=== PATIENT | female | born 1990 ===

== ENCOUNTER 2025-06-29 08:16 | Outpatient (AMB) | payer OTHER, SELFPAY ==
--- NOTE | 2025-06-29 08:20 | MHC.PC.OV ---
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 Note: patient here for new patient visit Control Valve Technician Required: No Is last menstrual period known: No (has IUD) Post menopausal: No Patient : No Allergies No Known Allergies Allergy (Verified 06/29/25 08:33) Medication List - Last Reconciled 06/29/25 by Laura Munoz CNP No Known Home Meds Tobacco use date assessed: 06/29/25 Dental Screening Dental Screen Date: 06/29/25 Did you have a dental visit in the last 12 months?: No Did you have a dental problem in the last 6 months where you did not have access to dental care?: No Was dental information given to patient?: Patient has dentist HPI HPI Comments History of Present Illness Details 34-year-old female presents to [facility]. She is not on prescription medications. She has an IUD. She reports controlled anxiety symptoms. Smoking cigarettes relieves her anxiety symptoms. She has not been on psychotropic medications for over a year. She denies h/o of psychotherapy. Prior PCP? - [facility], Dr. Hernandez Last office visit/CPE/labs - Over a year ago Acute issue(s) - Reports sore throat for the past 3 days, progressively worsen. Initial body aches that completely subsided. She has been taking mucinex with some relief. Past Medical History - Hypothyroidism, nicotine dependence, obesity, anxiety Surgical History - None Family History - Dad: Substance abuse - Mom: Substance abuse Social History - Smokes 7-10 cigarettes daily, 9 years smoking history. Does not vape. Does not drink alcohol, denies h/o AUD.. Denies recreational drug use - Has been making unhealthy dietary choices. Active but does not exercise. Difficulty falling asleep for over 2 years; denies snoring Health maintenance - Last eye exam was almost 10 years ago. Referred to Ophthalmology for routine eye exam - Last dental visit was a year ago; encouraged to schedule an appointment with his dentist for routine dental care - Last tetanus vaccine was almost 10 years ago; received Tdap vaccine today - She notes that she is up-to-date on the flu vaccine - [facility]. 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 1. Little interest or pleasure in doing things: not at all 2. Feeling down, depressed, or hopeless: not at all 3. Trouble falling or staying asleep, or sleeping too much: not at all 4. Feeling tired or having little energy: not at all 5. Poor appetite or overeating: not at all 6. Feeling bad about yourself - or that you are a failure or have let yourself or your family down: not at all 7. Trouble concentrating on things, such as reading the newspaper or watching television: not at all 8. Moving or speaking so slowly that other people could have noticed. Or the opposite - being so fidgety or restless that you have been moving around a lot more than usual: not at all 9. Thoughts that you would be better off or of hurting yourself in some way: not at all Total score: 0 Depression Screening Interpretation: Negative Depression Screening Done: Yes 48095 - PHQ-9 Billing: Yes Source: Developed by Drs. Earl Johnson, Morelia Carter, Cezar Rivera and colleagues, with an educational tory from [employer]. Thrive Questionnaire Date Thrive assessed: 06/29/25 I am a: Patient What is your living situation today?: I have a steady place to live Within the past 12 months, did the food you bought not last and you didn't have the money to get more?: Never true Within the past 12 months, did you worry whether your food would run out before you got money to buy more?: Never true Do you have trouble paying for medicines?: No Do you have trouble getting transportation to medical appointments?: No Do you have trouble paying your heating and electricity bill?: No Do you have trouble taking care of your child, family member or friend?: No Do you have trouble with day-to-day activities such as bathing, preparing meals, shopping, managing finances, etc.?: No Are you currently unemployed and looking for a job?: No Are you interested in more education?: No Please select the resources that you would like help with: Childcare Currently or been in a relationship where the following occur: No concerns reported THRIVE Score: 0 AUDIT C Alcohol Use Questionnaire (AUDIT-C) 1. How often do you have a drink containing alcohol?: Never 3. How often do you have six or more drinks on one occasion?: Never Total Score: 0 Score Reviewed/Action Taken: Yes DALE-7 AMB Questionnaire DALE-7 Date DALE - 7 assessed: 06/29/25 Feeling nervous, anxious, or on edge: 0 = Not at all Not being able to stop or control worryin = Not at all Worrying too much about different things: 0 = Not at all Trouble relaxin = Not at all Being so restless that it is hard to sit still: 0 = Not at all Becoming easily annoyed or irritable: 0 = Not at all Feeling afraid as if something awful might happen: 0 = Not at all Total DALE-7 score (0-4 normal; 5-9 mild; 10-14 moderate; 15-21 severe): 0 Source: Developed by Drs. Earl Johnson, Morelia Carter, Cezar Rivera and colleagues, with an educational tory from [employer]. DALE-7 Assessment Billing DALE-7 Assessment Tool: DALE-7 Assessment 73305 Review of Systems Const Details: Denies chills, Denies fatigue, Denies fever(s), Denies headache(s) and Denies weakness HEENT Reports sore throat, Denies change in vision, Denies dizziness, Denies headache(s), Denies hearing loss, Denies nasal congestion, Denies sinus pain, Denies sinus pressure Card Denies chest pain, Denies lightheadedness, Denies dyspnea and Denies other (palpitations) Resp Denies cough, Denies dyspnea and Denies wheezing GI Denies abdominal pain, Denies melena, Denies hematochezia, Denies change in bowel habits, Denies dyspepsia and Denies nausea Denies hematuria and Denies dysuria Musc Denies abnormal gait, Denies myalgias, Denies arthralgias, Denies numbness and Denies tingling Skin/Breast Denies rash, Denies unusual bruising and Denies wounds Neuro Denies abnormal gait, Denies dizziness, Denies headache(s), Denies memory loss, Denies numbness, Denies Sensory deficit (Neuro), Denies tingling and Denies weakness Psych Denies anxiety, Denies depression and Denies memory loss Endo Denies cold intolerance, Denies fatigue, Denies heat intolerance, Denies polydipsia and Denies polyuria Abdoulaye/Lymph Denies easy bleeding and Denies easy bruising Aller/Immun Denies wheezing Physical exam (Primary Care) Vital Signs: Last Vital Signs Temp 98.1 F 06/29/25 08:30 Pulse 89 06/29/25 08:30 Resp 16 06/29/25 08:30 BP 125/70 06/29/25 08:30 Pulse Ox 98 06/29/25 08:30 Oxygen Delivery Method Room Air 06/29/25 08:30 BMI result Body Mass Index 34.9 Tobacco/Smoking Status: Tobacco use Status Tobacco use date assessed 06/29/25 06/29/25 08:27 Patient Tobacco Use Status Current everyday Tobacco 06/29/25 08:27 e-Cigarette/Vaping Use Never Used 06/29/25 08:27 PHQ-9: PHQ-9 Score PHQ-9: Total score 0 06/29/25 09:04 Depression Screening Interpretation: Negative Thrive Assessment: Date of Thrive Assessment Date Thrive assessed 06/29/25 06/29/25 08:24 Currently or been in a relationship where the following occur: No concerns reported Const Other: General: no acute distress, well developed, alert and awake Nutritional Appearance: well nourished Orientation/consciousness: patient oriented x3 HENMT Head: Yes normocephalic and Yes atraumatic Ears: hearing grossly normal bilaterally and TM's normal bilaterally General nose exam: Normal external nose present and Normal nares present Mouth: Normal oral and palatal mucosa present and moist mucous membranes Teeth and gingiva: dentition normal Throat: Tonsils with yellow patches and slight swelling and erythema Eyes Pupils: Equal, round and reactive pupils present and Pupil accommodation reflex normal EOM: EOMs intact bilaterally Neck Neck: Yes normal visual inspection, Yes no lymphadenopathy and Yes trachea midline Thyroid: Thyroid normal Carotids: no bruits Lymphatic: no lymphadenopathy noted Chest Chest palpation & inspection: normal inspection of the chest Resp Effort & Inspection: normal respiratory effort Auscultation: clear to auscultation bilaterally Cardio Rate: regular rate Rhythm: regular rhythm Heart sounds: S1 normal heart sound present, S2 normal heart sound present, no gallops, no murmurs and no rubs Bruits: no abdominal aortic bruits and no carotid bruits GI Palpation (GI): No Abdominal aortic bruit present, Soft to palpation, nontender, No hepatosplenomegaly present and No Rebound tenderness present Auscultation: normal bowel sounds General: Yes no CVA tenderness Back/Spine/Pelvis Back: no CVA tenderness Cervical Spine: cervical ROM normal and No Cervical spine tenderness Thoracic/Lumbar Spine: thoraco-lumbar ROM normal, No pain with thoraco-lumbar ROM, No thoracic spinal tenderness and No lumbar spinal tenderness Skin General: warm and dry. Normal skin color. Normal skin turgor Lesions: no lesions Rashes: no rashes Trauma: no lacerations or abrasions Wounds: no wounds Nails: normal Neuro General: patient oriented x3, gait normal and CN's II-XI intact bilaterally Cranial nerves: Yes Equal, round and reactive pupils present Cognition (Neuro): normal cognition Gait exam (Neuro): Normal gait present Motor exam (neuro): 5/5 motor strength present throughout Sensory Exam: No Sensory deficit (Neuro) Deep tendon reflexes (DTR's): Right patellar reflex intensity grade: 2+ and Left patellar reflex intensity grade: 2+ Extrem General: Yes normal to inspection, No edema and No calf tenderness Psych Appearance: grossly normal Affect: normal affect Attitude: cooperative Thought process: Normal thought process present Immunizations Boostrix Tdap 2.5 Lf unit-8 mcg-5 Lf/0.5 mL intramuscular syringe Performing Provider: Laura Munoz CNP Performing Location: [facility] Administered by: Seun Nolasco RN on 06/29/25 09:04 Dose Route Admin Location Dispensed Lot Number Expiration Date [facility] Visual [employer] Program[employer] 0.5 mL IM Left Deltoid 0.5 mL [id number] 08/24/27 [id number] [employer] Total Dispensed Waste 0.5 mL 0 % VIS Given Date VIS Provided VIS Publication Date 06/29/25 Single Vaccine 21 Eligibility Eligibility Date Funding Source Not [facility] Eligible 06/29/25 Private Coding Level of Care Code New Pt Level 4 (23337) New Pt Prev Care 18-39yr(75763 Diagnoses Normal physical examination, routine Z00.00 Anxiety F41.9 Obesity (BMI 30-39.9) E66.9 Eye exam, routine Z01.00 Strep pharyngitis J02.0 Smoking 1/2 pack a day or less F17.210 Sleep disturbance G47.9 Laboratory tests ordered as part of a complete physical exam (CPE) Z00.00 Additional Codes DALE-7 Assessment Billing - DALE-7 Assessment Tool: DALE-7 Assessment 16250 ([id number]) PHQ-9 - 62220 - PHQ-9 Billing: Yes ([id number]) Assessment & Plan Assessment & Plan (1) Normal physical examination, routine: Code(s): Z00.00 - Encounter for general adult medical examination without abnormal findings Category: Medical Plan: No significant functional limitation noted. Healthy diet and routine exercise encouraged. Perform lab work and follow-up for a telehealth visit for labs reviewed in 2-4 weeks. Return sooner with symptoms or concerns. Verbalized understanding and agreed with the plan. (2) Anxiety: Code(s): F41.9 - Anxiety disorder, unspecified Category: Medical Plan: Reports controlled anxiety symptoms. Smoking cigarettes relieves her anxiety symptoms. She has not been on psychotropic medications for over a year. She denies h/o of psychotherapy. Smoking cessation encouraged. Encouraged to apply nicotine patch as prescribed. Hydroxyzine 25 mg 3 times daily as needed ordered for anxiety; advised to take as prescribed. Instructed on the risks, benefits, and potential adverse reactions of the medication. Follow-up with worsening or new symptoms. Verbalized understanding and agreed with the plan. (3) Obesity (BMI 30-39.9): Code(s): E66.9 - Obesity, unspecified Category: Medical Plan: She currently weighs 191 lb, BMI is 34.9. She has been making healthy dietary choices. Referred to [facility] systems analyst developer/dietitian as requested. Follow-up as needed. Verbalized understanding and agreed with the plan. (4) Eye exam, routine: Code(s): Z01.00 - Encounter for examination of eyes and vision without abnormal findings Category: Medical Plan: Last eye exam was almost 10 years ago. Referred to Ophthalmology for routine eye exam. (5) Strep pharyngitis: Code(s): J02.0 - Streptococcal pharyngitis Category: Medical Plan: Reports sore throat for the past 3 days, progressively worsen. Initial body aches that completely subsided. She has been taking mucinex with some relief. Tonsils with yellow patches and slight swelling and erythema. Amoxicillin 500 mg twice daily times 10 days ordered; advised to take as prescribed. Instructed on the risks, benefits, and potential adverse reactions of the medication. May take Tylenol or ibuprofen as needed for pain or discomfort. Adequate hydration encouraged. Advised to avoid kissing or sharing utensils to limit spread. Follow-up with worsening or new symptoms. Verbalized understanding and agreed with the plan. (6) Smoking 1/2 pack a day or less: Code(s): F17.210 - Nicotine dependence, cigarettes, uncomplicated Category: Social Hx Plan: Smokes 7-10 cigarettes daily, 9 years smoking history. Smoking cigarettes relieves her anxiety symptoms; however, she is motivated to quit. Instructed on the health risks and complications of cigarette smoking and encouraged to quit. Nicotine patch as ordered. Follow-up as needed. Verbalized understanding and agreed with the plan. (7) Sleep disturbance: Code(s): G47.9 - Sleep disorder, unspecified Category: Medical Plan: Reports difficulty falling asleep for over 2 years; denies snoring. Instructed on sleep hygiene. Routine exercise encouraged. Follow-up as needed. Verbalized understanding and agreed with the plan. (8) Laboratory tests ordered as part of a complete physical exam (CPE): Code(s): Z00.00 - Encounter for general adult medical examination without abnormal findings Category: Medical Plan: Fasting labs ordered as part of a complete physical exam. Advised to fast for at least 10 hours before getting labs drawn. May drink water Verbalized understanding and agreed with treatment plan. Orders: Orders TSH reflex Free T4 Today Z00.00 - Encounter for general adult medical examination without abnormal findings Complete Blood Count Auto Diff Today Z00.00 - Encounter for general adult medical examination without abnormal findings Comprehensive [place]. Panel Fast Today Z00.00 - Encounter for general adult medical examination without abnormal findings Lipid Panel Today Z00.00 - Encounter for general adult medical examination without abnormal findings Microalbumin, Random (w Creat) Today Z00.00 - Encounter for general adult medical examination without abnormal findings UA CC w/rflx Micro + Cult Today Z00.00 - Encounter for general adult medical examination without abnormal findings Vitamin D 25-OH Total Today Z00.00 - Encounter for general adult medical examination without abnormal findings TDaP Immunization Today Z23 - Encounter for immunization Referrals Ophthalmology Referral Z01.00 - Encounter for examination of eyes and vision without abnormal findings Nutrition/Dietitian Referral E66.9 - Obesity, unspecified Medications: New amoxicillin 500 mg PO BID 20 tabs 0RF 10 days hydroxyzine HCl 25 mg PO TID PRN 90 tabs 3RF anxiety nicotine Apply 14 mg patch daily x6 weeks, then apply 7 mg patch daily x2 weeks 1 patch transdermal Q24H 56 ea 0RF
--- OUTSIDE RECORDS SUMMARY | 2025-06-29 08:25 | XMS_ITS | Clinical Summary ---
Author Organization [facility] Address [address] [place] [address] Phone Care Team Providers Care Edge Inker Uppers Name Role Phone Nedra Miller MD Primary Care Provider [phone] [phone] Allergies No known active allergies Medications No known medications Encounters Date Type Department Care Team Description 04/22/2025 12:03 PM EDT - 04/22/2025 5:[address] [facility] [address] [place] [address] Steve Mayo MD Lower abdominal pain (Primary Dx) Discharge Disposition: Home or Self Care from Last 3 Months Surgical History Surgery Date Site/Laterality Comments OTHER SURGICAL HISTORY PROCEDURE: DENIES PREVIOUS SURGERY Family History Relation Name Status Comments Brother Alive Father Alive Mother Alive Sister Alive Social History Tobacco Use Types Packs/Day Years Used Date Smoking Tobacco: Never Alcohol Use Standard Drinks/Week Comments No 0 (1 standard drink = 0.6 oz pur e alcohol) Comments Unknown Sex and Gender Information Value Date Recorded Sex Assigned at Not on file Legal Sex Female 5:42 AM EST Gender Identity Not on file Sexual Orientation Not on file Obstetrics History Last Filed Vital Signs Vital Sign Reading Time Taken Comments Blood Pressure 102/64 04/22/2025 3:59 PM EDT Pulse 61 04/22/2025 3:59 PM EDT Temperature 36.6 C (97.9 F) 04/22/2025 3:59 PM EDT Respiratory Rate 16 04/22/2025 3:59 PM EDT Oxygen Saturation 100% 04/22/2025 3:59 PM EDT Inhaled Oxygen Concentration - - Weight 88.5 kg (195 lb) 04/22/2025 12:00 PM EDT Height 157.5 cm (5' 2 ) 04/22/2025 12:00 PM EDT Body Mass Index 35.67 04/22/2025 12:00 PM EDT Plan of Treatment Health Maintenance Due Date Last Done Comments Hepatitis B Vaccines (1 of 3 - 19+ 3-dose series) 2011 Cervical Cancer Screening: P ap Smear 2013 DTaP,Tdap,and Td Vaccines (2 - Td or Tdap) 06/02/2022 06/02/2012 HIV Screening 10/07/2022 Hepatitis C Screening 10/07/2022 Social Influencers of Health Screening 10/07/2022 COVID-19 Vaccine (2023-2 5 season) 2024 Depression Screening 11/04/2024 Influenza Vaccine (#1) 2025 11/14/2012 HIB Vaccines Aged Out No longer eligi ble based on patient's age to complete this topic HPV Vaccines Aged Out No longer eligi ble based on patient's age to complete this topic Hepatitis A Vaccines Aged Out No long er eligible based on patient's age to complete this topic IPV Vaccines Aged Out No longer eligi ble based on patient's age to complete this topic MMR Vaccines Aged Out No longer eligi ble based on patient's age to complete this topic Meningococcal ACWY Vaccine Aged Out N o longer eligible based on patient's age to complete this topic Meningococcal B Vaccine Aged Out No l onger eligible based on patient's age to complete this topic Pneumococcal Vaccine: Pediat rics (0 to 5 Years) and At-Risk Patients (6 to 49 Years) Aged Out No longer eligi ble based on patient's age to complete this topic RSV Immunization Patients Un russell 20 months Aged Out No longer eligible b ased on patient's age to complete this topic Varicella Vaccines Aged Out No longer eligible based on patient's age to complete this topic Procedures Procedure Name Priority Date/Time Associated Diagnosis Comments US PELVIS NON OB COMPLETE W TRANSVAGINAL STAT 04/22/2025 2:37 PM EDT POC , URINE DIAGNOSTIC STAT 04/22/2025 1:29 PM EDT URINALYSIS WITH REFLEX MICROSCOPIC AND CULTURE STAT 04/22/2025 1:24 PM EDT CULTURE URINE STAT 04/22/2025 1:24 PM EDT HCG, SERUM, QUALITATIVE STAT Add-on 04/22/2025 12:13 PM EDT CBC WITH AUTO DIFFERENTIAL STAT 04/22/2025 12:13 PM EDT COMPREHENSIVE METABOLIC PANEL STAT 04/22/2025 12:13 PM EDT CBC AND DIFFERENTIAL STAT 04/22/2025 12:13 PM EDT from Last 3 Months Results * US Pelvis Non OB Complete w Transvaginal (04/22/2025 2:37 PM EDT) Anatomical Region Laterality Modality Body, Pelvis Ultrasound Impressions 04/22/2025 3:[address]. Negative pelvic ultrasound otherwise. 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 Transabdominal and transvaginal imaging of the pelvis was performed. COMPARISON: None. FINDINGS: UTERUS: Measures 8.5 x 4 x 5.5 cm. Anteverted Normal echotexture. No focal lesions. IUD in place approximately 0.7 cm from tip to the end of the endometrium in the fundus. ENDOMETRIUM: Thickness = 5 mm. Unremarkable echotexture. No focal abnormality. RIGHT OVARY: Measures 3.6 x 1.7 x 2.2 cm. follicles identified. No focal adnexal abnormality. Normal color-flow. LEFT OVARY: Measures 2.4 x 1.9 x 1.9 cm. follicles identified. No focal adnexal abnormality. Normal color-flow. Steve Fany Mayo MD IM US PROCEDURES Edited Result - Final * POC , urine manually resulted (04/22/2025 1:29 PM EDT) Pathologist [facility] HCG, Ur POC Negative Negative POC hCG Int QC Pass? Yes Yes EXPIRATION DATE POC 20261222 LOT NUMBER POC [id number] Urine Urine specimen obtained by clean catch procedure / Unknown 04/22/2025 1:29 PM EDT Tseve B Gael YEUNG POINT OF CARE TEST ENTER/EDIT O RDERABLES Final Result * (ABNORMAL) Urinalysis with reflex microscopic and culture (04/22/2025 1:24 PM EDT) [facility] Specific [place] Urine 1.013 1.003 - 1.030 LAB URINALYSIS - AUTOMATED METHOD 04/22/2025 2:[address] [facility] pH, Urine 7.5 5.0 - 8.0 pH LAB URINALYSIS - AUTOMATED METHOD 04/22/2025 2:[address] [facility] Leukocytes, Urine Moderate(A) Negative LAB URINALYSIS - AUTOMATED METHOD 04/22/2025 2:[address] [facility] Nitrite, Urine Negative Negative LAB URINALYSIS - AUTOMATED METHOD 04/22/2025 2:[address] [facility] Protein, Urine Negative <=Trace mg/dL LAB URINALYSIS - AUTOMATED METHOD 04/22/2025 2:[address] [facility] Glucose, Urine Negative Negative mg/dL LAB URINALYSIS - AUTOMATED METHOD 04/22/2025 2:[address] [facility] Ketones, Urine Negative Negative mg/dL LAB URINALYSIS - AUTOMATED METHOD 04/22/2025 2:03 PM EDT [facility] Urobilinogen , Urine 0.2 0.2 - 1.0 mg/dL LAB URINALYSIS - AUTOMATED METHOD 04/22/2025 2:03 PM EDT [facility] Bilirubin, Urine Negative Negative LAB URINALYSIS - AUTOMATED METHOD 04/22/2025 2:03 PM EDT [facility] Blood, Urine Trace(A) Negative LAB URINALYSIS - AUTOMATED METHOD 04/22/2025 2:03 PM EDT [facility] RBC, Urine 8.3(H) 0 - 4 /HPF LAB URINALYSIS - AUTOMATED METHOD [facility] WBC, Urine 8.4(H) 0 - 4 /HPF LAB URINALYSIS - AUTOMATED METHOD 04/22/2025 2:[address] [facility] Squamous Epithelial, Urine >100(H) 0 - 60 /LPF LAB URINALYSIS - AUTOMATED METHOD 04/22/2025 2:[address] [facility] Bacteria, Urine Few(A) Negative /HPF LAB URINALYSIS - AUTOMATED METHOD 04/22/2025 2:[address] [facility] Hyaline Casts, Urine 3.2(H) 0 - 3 /LPF LAB URINALYSIS - AUTOMATED METHOD 04/22/2025 2:[address] [facility] Urine Urine specimen obtained by clean catch procedure / Unknown Non-blood Collection / Unknown 04/22/2025 1:24 PM EDT 04/22/2025 1:52 PM EDT us Steve B Gael YEUNG LAB URINE ORDERABLES Final Resu lt [facility] [address] [place] [address], [place] [phone] * Culture urine (04/22/2025 1:24 PM EDT) Pathologist [facility] Culture, Urine 10,000-49,000 CFU/mL Mixed urogenital emerson, no uropathogens present. Suggest repeat specimen if clinically indicated. 04/23/2025 8:16 AM EDT [facility] Urine Urine specimen obtained by clean catch procedure / Unknown Non-blood Collection / Unknown 04/22/2025 1:24 PM EDT 04/22/2025 2:03 PM EDT Steve B Gael YEUNG LAB MICROBIOLOGY - GENERAL DENISE ANGEL Final Result [facility] [address] [place] [address], [place] [phone] * (ABNORMAL) CBC auto differential (04/22/2025 12:13 PM EDT) [facility] WBC 10.2 4.8 - 10.8 K/mcL LAB HEMETOLOGY METHOD 04/22/2025 1:03 PM EDT [facility] RBC 4.80 3.80 - 4.80 M/mcL LAB HEMETOLOGY METHOD 04/22/2025 1:03 PM EDT [facility] Hemoglobin 13.7 11.5 - 16.0 g/dL LAB HEMETOLOGY METHOD 04/22/2025 1:03 PM EDT [facility] Hematocrit 42.8 35.0 - 47.0 % LAB HEMETOLOGY METHOD 04/22/2025 1:03 PM EDT [facility] MCV 89.4 79.0 - 98.0 FL LAB HEMETOLOGY METHOD 04/22/2025 1:03 PM EDT [facility] MCH 28.6 27.0 - 32.0 pcg LAB HEMETOLOGY METHOD [facility]25 [facility] MCHC 32.0 32.0 - 37.0 g/dL LAB HEMETOLOGY METHOD 04/22/2025 1:03 [facility] RDW 13.4 11.0 - 15.0 % LAB HEMETOLOGY METHOD 04/22/2025 1:[address] [facility] Platelets 352 130 - 400 K/mcL LAB HEMETOLOGY METHOD 04/22/2025 1:[address] [facility] MPV 10.3 7.0 - 11.0 FL LAB HEMETOLOGY METHOD 04/22/2025 1:[address] [facility] NRBC 0.0 <1.0 % LAB HEMETOLOGY METHOD 04/22/2025 1:[address] [facility] NRBC Absolute 0.00 <0.10 K/mcL LAB HEMETOLOGY METHOD 04/22/2025 1:[address] [facility] Neutrophils Relative 66.5 % LAB HEMETOLOGY METHOD 04/22/2025 1:[address] [facility] Lymphocytes Relative 22.7 % LAB HEMETOLOGY METHOD 04/22/2025 1:[address] [facility] Monocytes Relative 7.2 % LAB HEMETOLOGY METHOD 04/22/2025 1:[address] [facility] Eosinophils Relative 2.2 % LAB HEMETOLOGY METHOD 04/22/2025 1:[address] [facility] Basophils Relative 1.0 % LAB HEMETOLOGY METHOD 04/22/2025 1:[address] [facility] Immature Granulocytes Relative 0.4 % LAB HEMETOLOGY METHOD 04/22/2025 1:[address] [facility] Neutrophils Absolute 6.77 1.50 - 7.00 K/mcL LAB HEMETOLOGY METHOD 04/22/2025 1:[address] [facility] Lymphocytes Absolute 2.31 1.00 - 5.00 K/mcL LAB HEMETOLOGY METHOD 04/22/2025 1:03 PM EDT [facility] Monocytes Absolute 0.73 0.20 - 1.00 K/mcL LAB HEMETOLOGY METHOD 04/22/2025 1:03 PM EDT [facility] Eosinophils Absolute 0.22 0.00 - 0.50 K/[facility] LAB HEMETOLOGY METHOD 04/22/2025 1:03 PM EDT [facility] Basophils Absolute 0.10 0.00 - 0.20 K/[facility] LAB HEMETOLOGY METHOD 04/22/2025 1:03 PM EDT [facility] Immature Granulocytes Absolute 0.04(H) 0.00 - 0.03 K/[facility] LAB HEMETOLOGY METHOD 04/22/2025 1:03 PM EDT [facility] Blood Venous blood specimen / Unknown Venipuncture / Unknown 04/22/2025 12:13 PM EDT 04/22/2025 12:53 PM EDT Steve Mayo MD LAB BLOOD ORDERABLES Final Resu lt [facility] [address] [place] [address], [place] [phone] * hCG, serum, qualitative (04/22/2025 12:13 PM EDT) hCG Qual Negative Negative 04/22/2025 2:11 PM EDT [facility] Blood Venous blood specimen / Unknown Venipuncture / Unknown 04/22/2025 12:13 PM EDT 04/22/2025 12:54 PM EDT us Steve Mayo MD LAB BLOOD ORDERABLES Final Resu lt [facility] [address] [place] [address], [place] [phone] * Comprehensive metabolic panel (04/22/2025 12:13 PM EDT) Sodium 142 133 - 145 mmol/L LAB CHEMISTRY METHOD 04/22/2025 1:[address] [facility] Potassium 4.7 3.5 - 5.5 mmol/L LAB CHEMISTRY METHOD 04/22/2025 1:[address] [facility] Chloride 110 96 - 110 mmol/L LAB CHEMISTRY METHOD 04/22/2025 1:[address] [facility] CO2 26 21 - 32 mmol/L LAB CHEMISTRY METHOD 04/22/2025 1:[address] [facility] Anion Gap 6 3 - 11 LAB CHEMISTRY METHOD 04/22/2025 1:[address] [facility] Glucose 87 70 - 100 mg/dL LAB CHEMISTRY METHOD 04/22/2025 1:[address] [facility] BUN 7 5 - 25 mg/dL LAB CHEMISTRY METHOD 04/22/2025 1:[address] [facility] Creatinine 0.87 0.50 - 1.10 mg/dL LAB CHEMISTRY METHOD 04/22/2025 1:[address] [facility] eGFR 91 >=60 mL/min/1. 73m2 LAB CHEMISTRY METHOD 04/22/2025 1:[address] [facility] Comment:Calculation based on the Chronic Kidney Disease Epidemiology Collaboration (CKD-EPI) equation refit without adjustment for race. BUN/Creatinine Ratio 8.0 LAB CHEMISTRY METHOD 04/22/2025 1:[address] [facility] Calcium 8.7 8.5 - 10.5 mg/dL LAB CHEMISTRY METHOD 04/22/2025 1:[address] [facility] AST (SGOT) 19 10 - 42 unit/L LAB CHEMISTRY METHOD 04/22/2025 1:[address] [facility] ALT (SGPT) 21 10 - 60 unit/L LAB CHEMISTRY METHOD 04/22/2025 1:29 PM EDT [facility] Alkaline Phosphatase 68 42 - 121 unit/L LAB CHEMISTRY METHOD 04/22/2025 1:29 PM EDT [facility] Total Protein 6.6 6.0 - 8.0 g/dL LAB CHEMISTRY METHOD 04/22/2025 1:29 PM EDT [facility] Albumin 3.5 3.2 - 5.0 g/dL LAB CHEMISTRY METHOD 04/22/2025 1:29 PM EDT [facility] Total Bilirubin 0.4 0.0 - 1.4 mg/dL LAB CHEMISTRY METHOD 04/22/2025 1:29 PM EDT [facility] Blood Venous blood specimen / Unknown Venipuncture / Unknown 04/22/2025 12:13 PM EDT 04/22/2025 12:54 PM EDT [facility] Fany Mayo MD LAB BLOOD ORDERABLES Final Resu lt [facility] [address] [place] [address], from Last 3 Months Insurance [facility] Care Teams Edge Inker Uppers Relationship Specialty Start Date End Date Nedra Miller MD [address] [place] [address] PCP - General Internal Medicine 08/02/21
[2025-06-29 08:30] VITALS: BP 125/70; PULSE 89; RESP 16; TEMP 36.7; O2SAT 98; BMI 34.9
== END 2025-06-29 08:55 | disposition home or self-care (01) ==
LOC: HO.HMCFM 08:16
PROVIDERS: PCP Internal Medicine; Visit Provider Nurse Practitioner Family
DX: Z00.00 Encounter for general adult medical examination without abnormal findings (principal); F41.9 Anxiety disorder, unspecified; E66.9 Obesity, unspecified; Z68.34 Body mass index [BMI] 34.0-34.9, adult; J02.0 Streptococcal pharyngitis; F17.210 Nicotine dependence, cigarettes, uncomplicated; G47.9 Sleep disorder, unspecified; Z23 Encounter for immunization

== ENCOUNTER → 2025-06-29 08:16 | Outpatient (BNVA) | payer OTHER, SELFPAY | PROVIDERS: PCP Internal Medicine; Visit Provider Nurse Practitioner Family | DX: Z00.00 Encounter for general adult medical examination without abnormal findings (principal); F41.9 Anxiety disorder, unspecified; E66.9 Obesity, unspecified; J02.0 Streptococcal pharyngitis; F17.210 Nicotine dependence, cigarettes, uncomplicated; Z23 Encounter for immunization | CPT/HCPCS: 90471; 90715; 96127; 99202; 99385 ==

== ENCOUNTER 2025-07-12 09:08 | Outpatient (REF) | payer OTHER, SELFPAY ==
--- OUTSIDE RECORDS SUMMARY | 2025-07-12 10:17 | XMS_ITS | Clinical Summary ---
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 Nedra Miller MD Primary Care Provider +1 [phone] Allergies No known active allergies Medications No known medications Encounters Date Type Department Care Team Description 04/22/2025 12:03 PM EDT - 04/22/2025 5:08 PM EDT Emergency [facility] Emergency [address] [place] [address] Steve Mayo MD Lower abdominal [...] 10/07/2022 Social Influencers of Health Screening 10/07/2022 Depression Screening 11/04/2024 COVID-19 Vaccine ( - 2023-2 5 season) 2025 Influenza Vaccine (#1) 2025 11/14/2012 HIB Vaccines [...] Signed Date: 04/22/2025 15:19 ET Workstation ID: [id number] Transcribed By: Self Edit Transcribed Date: 04/22/2025 15:17 ET Narrative 04/22/2025 3:19 PM EDT ULTRASOUND PELVIS INDICATIONS: 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 Yes Yes EXPIRATION DATE POC 20261222 LOT NUMBER POC [id number] Urine Urine specimen obtained by clean catch procedure / Unknown 04/22/2025 1:29 PM EDT Steve B Gael YEUNG POINT OF CARE TEST ENTER/EDIT O RDERABLES Final Result * (ABNORMAL) Urinalysis with reflex microscopic and culture (04/22/2025 1:24 PM EDT) [facility] [place] Urine 1.013 1.003 - 1.030 LAB URINALYSIS - AUTOMATED METHOD 04/22/2025 2:03 PM [facility] pH, Urine 7.5 5.0 - 8.0 pH LAB URINALYSIS - AUTOMATED METHOD 04/22/2025 2:03 PM [facility] Leukocytes, Urine Moderate(A) Negative LAB URINALYSIS - AUTOMATED METHOD 04/22/2025 2:03 PM [facility] Nitrite, Urine Negative Negative LAB URINALYSIS - AUTOMATED METHOD 04/22/2025 2:03 PM [facility] Protein, Urine Negative <=Trace mg/dL LAB URINALYSIS - AUTOMATED METHOD 04/22/2025 2:03 PM [facility] Glucose, Urine Negative Negative mg/dL LAB URINALYSIS - AUTOMATED METHOD 04/22/2025 2:03 PM [facility] Ketones, Urine Negative Negative mg/dL LAB URINALYSIS - AUTOMATED METHOD 04/22/2025 2:03 PM EDT [facility] Urobilinogen , Urine 0.2 0.2 - 1.0 mg/dL LAB URINALYSIS - AUTOMATED METHOD 04/22/2025 2:03 PM EDT [facility] Bilirubin, Urine Negative Negative LAB URINALYSIS - AUTOMATED METHOD 04/22/2025 2:03 PM EDT [facility] Blood, Urine Trace(A) Negative LAB URINALYSIS - AUTOMATED METHOD 04/22/2025 2:03 PM EDT [facility] RBC, Urine 8.3(H) 0 - 4 /HPF LAB URINALYSIS - AUTOMATED METHOD [facility]25 [facility] WBC, Urine 8.4(H) 0 - 4 /HPF LAB URINALYSIS - AUTOMATED METHOD 04/22/2025 2:03 PM [facility] Squamous Epithelial, Urine >100(H) 0 - 60 /LPF LAB URINALYSIS - AUTOMATED METHOD 04/22/2025 2:03 PM [facility] Bacteria, Urine Few(A) Negative /HPF LAB URINALYSIS - AUTOMATED METHOD 04/22/2025 2:03 PM [facility] Hyaline Casts, Urine 3.2(H) 0 - 3 /LPF LAB URINALYSIS - AUTOMATED METHOD 04/22/2025 2:03 PM [facility] Urine Urine specimen obtained by clean catch procedure / Unknown Non-blood Collection / Unknown 04/22/2025 1:24 PM EDT 04/22/2025 1:52 PM EDT us Steve B Gael YEUNG LAB URINE ORDERABLES Final Resu lt [facility] [address] [place] [address], [place] [phone] * Culture urine (04/22/2025 1:24 PM EDT) Pathologist [facility] [place] Culture, Urine 10,000-49,000 CFU/mL Mixed urogenital emerson, no uropathogens present. Suggest repeat specimen if clinically indicated. 04/23/2025 8:16 AM EDT [facility] Urine Urine specimen obtained by clean catch procedure / Unknown Non-blood Collection / Unknown 04/22/2025 1:24 PM EDT 04/22/2025 2:03 PM EDT Steve B Gael YEUNG LAB MICROBIOLOGY - GENERAL DENISE ANGEL Final Result [facility] [address] [place] [address], [place] [phone] * (ABNORMAL) CBC auto differential (04/22/2025 12:13 PM EDT) [facility] WBC 10.2 4.8 - 10.8 K/mcL LAB HEMETOLOGY METHOD 04/22/2025 1:03 PM EDT [facility] RBC 4.80 3.80 - 4.80 M/mcL LAB HEMETOLOGY METHOD 04/22/2025 1:03 PM EDT [facility] Hemoglobin 13.7 11.5 - 16.0 g/dL LAB HEMETOLOGY METHOD 04/22/2025 1:03 PM EDT [facility] Hematocrit 42.8 35.0 - 47.0 % LAB HEMETOLOGY METHOD 04/22/2025 1:03 PM EDT [facility] MCV 89.4 79.0 - 98.0 FL LAB HEMETOLOGY METHOD 04/22/2025 1:03 PM EDT [facility] MCH 28.6 27.0 - 32.0 pcg LAB HEMETOLOGY METHOD [facility]2025 [facility] MCHC 32.0 32.0 - 37.0 g/dL LAB HEMETOLOGY METHOD 04/22[facility]2025 1:[facility] RDW 13.4 11.0 - 15.0 % LAB HEMETOLOGY METHOD 04/22/2025 1:03 PM [facility] Platelets 352 130 - 400 K/mcL LAB HEMETOLOGY METHOD 04/22/2025 1:03 PM [facility] MPV 10.3 7.0 - 11.0 FL LAB HEMETOLOGY METHOD 04/22/2025 1:03 PM [facility] NRBC 0.0 <1.0 % LAB HEMETOLOGY METHOD 04/22/2025 1:03 PM [facility] NRBC Absolute 0.00 <0.10 K/mcL LAB HEMETOLOGY METHOD 04/22/2025 1:03 PM [facility] Neutrophils Relative 66.5 % LAB HEMETOLOGY METHOD 04/22/2025 1:03 PM [facility] Lymphocytes Relative 22.7 % LAB HEMETOLOGY METHOD 04/22/2025 1:03 PM [facility] Monocytes Relative 7.2 % LAB HEMETOLOGY METHOD 04/22/2025 1:03 PM [facility] Eosinophils Relative 2.2 % LAB HEMETOLOGY METHOD 04/22/2025 1:03 PM [facility] Basophils Relative 1.0 % LAB HEMETOLOGY METHOD 04/22/2025 1:03 PM [facility] Immature Granulocytes Relative 0.4 % LAB HEMETOLOGY METHOD 04/22/2025 1:03 PM [facility] Neutrophils Absolute 6.77 1.50 - 7.00 K/mcL LAB HEMETOLOGY METHOD 04/22/2025 1:03 PM [facility] Lymphocytes Absolute 2.31 1.00 - 5.00 K/mcL LAB HEMETOLOGY METHOD 04/22/2025 1:03 PM EDT [facility] Monocytes Absolute 0.73 0.20 - 1.00 K/mcL LAB HEMETOLOGY METHOD 04/22/2025 1:03 PM EDT [facility] Eosinophils Absolute 0.22 0.00 - 0.50 K/[facility] LAB HEMETOLOGY METHOD 04/22/2025 1:03 PM EDT [facility] Basophils Absolute 0.10 0.00 - 0.20 K/[facility] LAB HEMETOLOGY METHOD 04/22/2025 1:03 PM EDT [facility] Immature Granulocytes Absolute 0.04(H) 0.00 - 0.03 K/[facility] LAB HEMETOLOGY METHOD 04/22/2025 1:03 PM EDT [facility] Blood Venous blood specimen / Unknown Venipuncture / Unknown 04/22/2025 12:13 PM EDT 04/22/2025 12:53 PM EDT Steve Mayo MD LAB BLOOD ORDERABLES Final Resu lt [facility] [address] [place] [address], [place] [phone] * hCG, serum, qualitative (04/22/2025 12:13 PM EDT) hCG Qual Negative Negative 04/22/2025 2:11 PM EDT [facility] Blood Venous blood specimen / Unknown Venipuncture / Unknown 04/22/2025 12:13 PM EDT 04/22/2025 12:54 PM EDT us Steve Mayo MD LAB BLOOD ORDERABLES Final Resu lt [facility] [address] [place] [address], [place] [phone] * Comprehensive metabolic panel (04/22/2025 12:13 PM EDT) Sodium 142 133 - 145 mmol/L LAB CHEMISTRY METHOD 04/22/2025 1:29 PM [facility] Potassium 4.7 3.5 - 5.5 mmol/L LAB CHEMISTRY METHOD 04/22/2025 1:29 PM [facility] Chloride 110 96 - 110 mmol/L LAB CHEMISTRY METHOD 04/22/2025 1:29 PM [facility] CO2 26 21 - 32 mmol/L LAB CHEMISTRY METHOD 04/22/2025 1:29 PM [facility] Anion Gap 6 3 - 11 LAB CHEMISTRY METHOD 04/22/2025 1:29 PM [facility] Glucose 87 70 - 100 mg/dL LAB CHEMISTRY METHOD 04/22/2025 1:29 PM [facility] BUN 7 5 - 25 mg/dL LAB CHEMISTRY METHOD 04/22/2025 1:29 PM [facility] Creatinine 0.87 0.50 - 1.10 mg/dL LAB CHEMISTRY METHOD 04/22/2025 1:29 PM [facility] eGFR 91 >=60 mL/min/1. 73m2 LAB CHEMISTRY METHOD 04/22/2025 1:29 PM [facility] Comment:Calculation based on the Chronic Kidney Disease Epidemiology Collaboration (CKD-EPI) equation refit without adjustment for race. BUN/Creatinine Ratio 8.0 LAB CHEMISTRY METHOD 04/22/2025 1:29 PM [facility] Calcium 8.7 8.5 - 10.5 mg/dL LAB CHEMISTRY METHOD 04/22/2025 1:29 PM [facility] AST (SGOT) 19 10 - 42 unit/L LAB CHEMISTRY METHOD 04/22/2025 1:29 PM [facility] ALT (SGPT) 21 10 - 60 unit/L LAB CHEMISTRY METHOD 04/22/2025 1:29 PM EDT [facility] Alkaline Phosphatase 68 42 - 121 unit/L LAB CHEMISTRY METHOD 04/22/2025 1:29 PM EDT [facility] Total Protein 6.6 6.0 - 8.0 g/dL LAB CHEMISTRY METHOD 04/22/2025 1:29 PM EDT [facility] Albumin 3.5 3.2 - 5.0 g/dL LAB CHEMISTRY METHOD 04/22/2025 1:29 PM EDT [facility] Total Bilirubin 0.4 0.0 - 1.4 mg/dL LAB CHEMISTRY METHOD 04/22/2025 1:29 PM EDT [facility] Blood Venous blood specimen / Unknown Venipuncture / Unknown 04/22/2025 12:13 PM EDT 04/22/2025 12:54 PM EDT [facility] Fany Mayo MD LAB BLOOD ORDERABLES Final Resu lt [facility] [address] [place] [address], from Last 3 Months Insurance [facility] [employer] Care Teams 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
[2025-07-12 15:10] LABS: Appearance Urine Clear; Glucose Urine UA Negative (Negative); PH 6.0 (5.0-9.0); Specific Gravity - Urine 1.025 (1.005-1.025); UMIC TRIGGER UACC YES
[2025-07-12 15:17] LABS: MANUAL DIFF FLAG NO
[2025-07-12 15:24] LABS: Hematocrit 42.7 % (37.0-47.0); Hemoglobin 13.8 g/dl (12.0-16.0); Imm Gran Abs Auto 0.09 X10*3/uL (0.00-0.03); Imm Gran Pct Auto 0.7 % (0.0-0.4); Lymphocytes Absolute Auto 2.8 X10*3/uL (1.2-4.9); Mean Corpuscular HGB Conc 32.3 g/dl (31.0-35.0); Mean Corpuscular Hemoglobin 28.5 pg (27.0-33.0); Mean Corpuscular Volume 88.0 fL (80.0-98.0); NRBC Abs Auto 0.000 X10*3/uL (0.0-0.012); NRBC Pct Auto 0.0 /100WBC (0.0-0.2); Platelet Count 388 X10*3/uL (160-400); Red Blood Count 4.85 X10*6/uL (4.20-5.50); White Blood Count 13.5 X10*3/uL (4.8-10.8)
[2025-07-12 15:45] LABS: Alanine Aminotransferase 31 U/L (0-31); Albumin Level 4.3 g/dL (3.5-5.0); Alkaline Phosphatase 67 U/L (39-117); Anion Gap 13 (12-20); Aspartate Amino Transferase 26 U/L (5-31); Blood Urea Nitrogen 8 mg/dL (9-16); Calcium 8.9 mg/dL (8.4-10.2); Carbon Dioxide 24 mmol/L (22-29); Chloride 109 mmol/L (96-108); Cholesterol 186 mg/dL (<200); Estimated Glomerular Filt Rate > 60; HDL Cholesterol 35 mg/dL (>40); Potassium 4.3 mmol/L (3.3-5.1); Sodium 142 mmol/L (135-145); Total Protein 7.0 g/dL (6.5-8.0); Triglycerides 190 mg/dL (<150)
[2025-07-12 15:59] LABS: Microalbum/Creatinine Ratio Ur 4.5 ug/mg cr (<30)
[2025-07-12 16:26] LABS: Free T4 (Free Thyroxine) 0.84 ng/dL (0.71-1.85)
== END 2025-07-12 09:09 | disposition home or self-care (01) ==
LOC: HO.WFDLDS 09:08
PROVIDERS: Visit Provider Nurse Practitioner Family
DX: Z00.00 Encounter for general adult medical examination without abnormal findings (principal)
CPT/HCPCS: 36415; 80053; 80061; 81001; 82043; 82306; 82570; 84439; 84443; 85025

== ENCOUNTER 2025-08-26 09:48 | Outpatient (AMB) | payer OTHER, SELFPAY ==
--- NOTE | 2025-08-26 09:58 | A.OFFVIS_ITS ---
VS Expanded 08/26/25 10:01 08/26/25 10:14 Height 5 ft 2 in 5 ft 2 in Weight 190 lb 14.725 oz 191 lb BMI 34.9 34.9 Intake Visit Reasons: Obesity, unspecified Allergies No Known Allergies Allergy (Verified 06/29/25 08:33) Nutrition Presentation Details: Pt presents for MNT for obesity, referred by PCP food frequency fruits: 1/wk fish: twice/wk ve/d dairy: 2+/d fried foods : 2-3 wk beverages: soda, (2-3 cans/d), coffee (4c/d) physical activity: sedentary (daily life activities) BS Monitoring Most Recent Diabetes Results: Microalb/Creat Ratio, (<30) 4.5 ug/mg cr 07/12/25 Cholesterol, (<200) 186 mg/dL 07/12/25 HDL Cholesterol, (>40) 35 mg/dL L 07/12/25 Triglycerides, (<150) 190 mg/dL H 07/12/25 Creatinine, (0.5-1.4) 0.96 mg/dL 07/12/25 BUN, (9-16) 8 mg/dL L 07/12/25 Sodium, (135-145) 142 mmol/L 07/12/25 Potassium, (3.3-5.1) 4.3 mmol/L 07/12/25 Chloride, (96-108) 109 mmol/L H 07/12/25 Carbon Dioxide, (22-29) 24 mmol/L 07/12/25 Calcium, (8.4-10.2) 8.9 mg/dL 07/12/25 AST, (5-31) 26 U/L 07/12/25 ALT, (0-31) 31 U/L 07/12/25 Total Protein, (6.5-8.0) 7.0 g/dL 07/12/25 Albumin, (3.5-5.0) 4.3 g/dL 07/12/25 ESZ-Yejcukq-Oh.Jeor Equation Height: 5 ft 2 in Weight: 191 lb Resting Metabolic Rate: 1526.39 Calculated Activity Level: Sedentary Calories Needed to Maintain Weight: 1831.67 Diagnosis Nutrition problem #1: overweight/obesity As related to (etiology) #1: diagnosis As evidenced by (sign/symptom) #1: knowledge deficit of diet [facility] Medical History (Updated 08/11/25 @ 14:59 by Laura Munoz CNP) H/O thyroid disease Anxiety Family History (Updated 06/29/25 @ 08:27 by RENATA Lester) Father Substance abuse Mother Substance abuse Social History (Updated 06/29/25 @ 08:27 by RENATA Lester) Housing: Apartment Patient Tobacco Use Status: Current everyday Tobacco user Cigarettes Per Day: 10 Years Smoked: 9 e-Cigarette/Vaping Use: Never Used Second Hand Smoke Exposure: Yes service: No Current occupational status: employed 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 Current occupational exposures/hazards: No Cognitive needs: No Hearing needs: No Vision needs: No Assessment & Plan Assessment & Plan (1) Obesity (BMI 30-39.9): Code(s): E66.9 - Obesity, unspecified Category: Medical Plan: current wt: 87 kg ( 08/28 ) est kcal needs as per MSJ: 1800 est protein needs as per 1 g/kg BW: 90 est fluid needs as per 30 ml/kg BW: 2600 Recommended fiber > 12 g /day and gradually increase up to 25-28 g /day or as tolerated Nutrition topics discussed : Reviewed (R), Pt verbalized understanding (V) , not applicable (N/A) R, : Healthy Plate Method Concept: R, : Carbohydrates: food sources of carbohydrates, relationship of carbohydrates to blood glucose, fatty liver GI health. Recommended total amount of carbohydrates per meals and snack. Differences between simple carbohydrates and complex carbohydrates R, : Lean protein foods including vegan , vegetarian sources of protein. Benefits of protein (including but not limited to healing, nutritional value , benefits in weight loss, glucose control R, V, N/A: Fats : Source of fats, benefits of fats. Difference between saturated and unsaturated fats. Saturated fats and its contribution to inflammation R, V, N/A: Fiber: food sources and role of fiber in the diet (including but not limited to its role as a prebiotic, benefits in constipation, role in IBS , role in glucose control and cholesterol level) R, : Hydration: role of hydration and prevention of dehydration or over hydration. Foods and water content. R, V, N/A: Vitamins and Minerals in foods and supplements R, V, N/A: Interpreting food labels, including serving size, macronutrients, vitamins, minerals, allergens, ingredient list , % daily value Patient Instructions: Work on following healthy plate method Choose lower fat food options and lower fat cooking methods as reviewed- see meal plan for healthier options Coding Level of Care Code Nutr Indiv Intake (49166) Diagnoses Obesity (BMI 30-39.9) E66.9 Time Spent (min) 30
[2025-08-26 10:01] VITALS: BMI 34.9
[2025-08-26 10:14] VITALS: BMI 34.9
--- OUTSIDE RECORDS SUMMARY | 2025-08-26 11:16 | XMS_ITS | Clinical Summary ---
Author Organization [facility] Address [address] [place] [address] Phone Care Team Providers Care Entry Operator Name Role Phone Nedra Miller MD Primary Care Provider [phone] Allergies No known active allergies Medications No known medications Surgical History Surgery Date Site/Laterality Comments OTHER [...] Cervical Cancer Screening: P ap Smear 2013 HPV Vaccines (1 - 3-dose SCD M series) 2019 DTaP,Tdap,and Td Vaccines (2 - Td or Tdap) 06/02/2022 06/02/2012 HIV Screening 10/07/2022 Hepatitis C Screening 10/07/2022 Social Influencers of Health Screening 10/07/2022 Depression Screening 11/04/2024 COVID-19 Vaccine (1 - 2023-2 5 season) 2025 Influenza Vaccine (#1) 2025 11/14/2012 RSV Immunization Adult Patie nts (1 - 1-dose 75+ series) 2067 HIB Vaccines Aged Out No longer eligi [...] on patient's age to complete this topic Insurance [employer] [facility] [facility] [employer] Care Teams Entry Operator Relationship Specialty Start Date End Date Nedra Miller MD [address] [place] [address] PCP - General Internal Medicine 08/02/21
== END 2025-08-26 10:42 | disposition home or self-care (01) ==
LOC: HO.ENCR 09:49
PROVIDERS: PCP Nurse Practitioner Family; Visit Provider Dietitian, Registered
DX: E66.9 Obesity, unspecified (principal)

== ENCOUNTER → 2025-08-26 09:48 | Outpatient (BNVA) | payer OTHER, SELFPAY | PROVIDERS: PCP Nurse Practitioner Family; Visit Provider Dietitian, Registered | DX: E66.9 Obesity, unspecified (principal) | CPT/HCPCS: 97802 ==

== ENCOUNTER 2025-09-07 14:01 | Outpatient (AMB) | payer OTHER, SELFPAY ==
--- NOTE | 2025-09-07 13:32 | A.OFFPC_ITS ---
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 She was on levothyroxine for hypothyroidism until she was 18 years old. No acute symptoms at this time. 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 Earl Johnson, Morelia Carter, Cezar Rivera and colleagues, with an educational tory from [employer]. Review of Systems Const Details: Denies chills, Denies fatigue, Denies fever(s), Denies headache(s) and Denies weakness Cardiac Denies chest pain, Denies claudication, Denies leg edema, Denies lightheadedness, Denies palpitations, Denies dyspnea, Denies dyspnea on exertion, Denies orthopnea and Denies other (Loss of consciousness) Resp Denies cough, Denies excessive phlegm production, Denies dyspnea, Denies dyspnea on exertion, Denies snoring and Denies wheezing Physical exam (Primary Care) Tobacco/Smoking Status: Tobacco use Status Tobacco use date assessed 09/07/25 09/07/25 13:34 Patient Tobacco Use Status Current everyday Tobacco 09/07/25 13:34 e-Cigarette/Vaping Use Never Used 09/07/25 13:34 Thrive Assessment: Date of Thrive Assessment Date Thrive assessed 06/29/25 09/07/25 13:34 Const Other: Patient is a+ox3 Telehealth Telehealth Telehealth Platform: Telephone Location of provider rendering services: practice address Location of patient: address on file Patient Identification confirmed using: Name, : Yes Telehealth method: voice only Patient verbally consented to treatment: Yes Patient verbally consented to billing insurance company: Yes Patient informed of any privacy concerns related to visit: Yes Coding Level of Care Code Tele Est Pt Level 3 (28922) Diagnoses Hypothyroidism E03.9 Dyslipidemia E78.5 Leukocytosis D72.829 Time Spent (min) 15 Assessment & Plan Assessment & Plan (1) Hypothyroidism: Code(s): E03.9 - Hypothyroidism, unspecified Category: Medical Plan: Recent TSH level is elevated, 15.98, free T4 is normal. She has history of hypothyroidism but has not been on medication Levothyroxine 50 mcg daily ordered; advised to take as prescribed on an empty stomach, with a full glass of water, 1 hour before other meds or food. Perform TSH/T4 blood work a few days before next visit. Follow-up for transfer of care with a new provider and labs review in 2 months. Return sooner with symptoms or concerns. Verbalized understanding and agreed with the plan. (2) Dyslipidemia: Code(s): E78.5 - Hyperlipidemia, unspecified Category: Medical Plan: Recent triglycerides and HDL level was elevated, 190 and 113 respectively, HDL level is slightly low, 35, total cholesterol level is normal. Advised to limit foods high in saturated fat and avoid foods high in trans fat. Routine exercise encouraged. Fast for 10-12 hours, may drink water, and perform lipid panel work a few days before next visit. Follow-up in 2 months. Verbalized understanding and agreed with the plan. (3) Leukocytosis: Code(s): D72.829 - Elevated white blood cell count, unspecified Category: Medical Plan: Recent WBC is slightly elevated, 13.5. Likely due to inflammation of bacterial infection. She was treated for strep pharyngitis about 2 weeks prior. Will recheck CBC and make changes as needed. Verbalized understanding and agreed with the plan. Orders: Orders Complete Blood Count Auto Diff Today D72.829 - Elevated white blood cell count, unspecified TSH reflex Free T4 2 Months E03.9 - Hypothyroidism, unspecified Lipid Panel 2 Months E78.5 - Hyperlipidemia, unspecified Medications: New levothyroxine (Euthyrox) 50 mcg PO DAILY 30 tabs 3RF 30 days
--- OUTSIDE RECORDS SUMMARY | 2025-09-07 17:04 | XMS_ITS | Clinical Summary ---
Author Organization [facility] Address [address] [place] [address] Phone Care Team Providers Care Private Pilot Name Role Phone Nedra Miller MD Primary Care Provider [phone] Allergies No known active allergies Medications No [...] patient's age to complete this topic Insurance [facility] [employer] Care Teams Private Pilot Relationship Specialty Start Date End Date Nedra Miller MD [address] [place] [address] PCP - General Internal Medicine 08/02/21
== END 2025-09-07 14:17 | disposition home or self-care (01) ==
LOC: HO.HMCFM 14:01
PROVIDERS: PCP Nurse Practitioner Family; Visit Provider Nurse Practitioner Family
DX: E03.9 Hypothyroidism, unspecified (principal); E78.5 Hyperlipidemia, unspecified; D72.829 Elevated white blood cell count, unspecified